=== PATIENT | female | born 1965 | race Asian ===

== ENCOUNTER → 2017-10-15 | Outpatient (CLI) | payer OTHER | LOC: CFH 14:57 | PROVIDERS: ATTEND Nurse Practitioner Primary Care | DX: E03.9 Hypothyroidism, unspecified (principal) | CPT/HCPCS: 76536 ==

== ENCOUNTER → 2020-02-16 | Outpatient (CLI) | payer OTHER | END | disposition home or self-care (01) | LOC: CFH 10:14 | PROVIDERS: ATTEND Nurse Practitioner Primary Care | DX: R10.9 Unspecified abdominal pain (principal); M79.89 Other specified soft tissue disorders | CPT/HCPCS: 74018 ==

== ENCOUNTER → 2020-12-23 | Outpatient (CLI) | payer OTHER | END | disposition home or self-care (01) | LOC: CFH 10:08 | PROVIDERS: ATTEND Nurse Practitioner Primary Care | DX: M51.35 Other intervertebral disc degeneration, thoracolumbar region (principal); M48.04 Spinal stenosis, thoracic region | CPT/HCPCS: 72072; 72100 ==